=== PATIENT | female | born 1950 | race Hispanic/Latino ===

== ENCOUNTER 2019-10-04 10:32 | Emergency (ER) | payer OTHER | END 2019-10-04 12:55 | disposition home or self-care (01) | LOC: EDH 10:32 | DX: S46.911A Strain of unspecified muscle, fascia and tendon at shoulder and upper arm level, right arm, initial encounter (principal); R07.89 Other chest pain; V49.59XA Passenger injured in collision with other motor vehicles in traffic accident, initial encounter; Y93.89 Activity, other specified; Y92.488 Other paved roadways as the place of occurrence of the external cause; Y99.8 Other external cause status | CPT/HCPCS: 71046; 93005 ==